=== PATIENT | female | born 1940 | race Two or more races ===

== ENCOUNTER 2022-09-22 18:47 | Inpatient (IN) | payer OTHER ==
[~2022-09-22] VITALS: Ht 147.3 cm; Wt 36.3 kg
[2022-09-22] MEDS ORDERED: LOSARTAN POTASS25 MG (19:09)
[2022-09-22] MEDS ORDERED: SEROQUEL25 MG (21:33)
== END 2022-09-23 07:22 | disposition expired | DRG 871 ==
LOC: ER 18:47 → ICUI 22:22 → ICU-2 22:22
PROVIDERS: ADMIT Internal Medicine; ATTEND Internal Medicine
PROC: 0BH17EZ Insertion of Endotracheal Airway into Trachea, Via Natural or Artificial Opening (ICD-10-PCS; principal; 2022-09-22)
PROC: 5A1935Z Respiratory Ventilation, Less than 24 Consecutive Hours (ICD-10-PCS; 2022-09-22)
DX: A41.9 Sepsis, unspecified organism (principal); J18.9 Pneumonia, unspecified organism; R65.21 Severe sepsis with septic shock; J96.01 Acute respiratory failure with hypoxia; N17.9 Acute kidney failure, unspecified; I24.9 Acute ischemic heart disease, unspecified; E87.4 Mixed disorder of acid-base balance; R57.1 Hypovolemic shock; I11.0 Hypertensive heart disease with heart failure; I46.9 Cardiac arrest, cause unspecified; G30.9 Alzheimer's disease, unspecified; F02.80 Dementia in other diseases classified elsewhere, unspecified severity, without behavioral disturbance, psychotic disturbance, mood disturbance, and anxiety